=== PATIENT | male | born 1980 | race Caucasian/White ===

== ENCOUNTER 2016-12-01 07:06 | Emergency (ER) ==
--- NOTE | 2016-12-01 07:37 | PROVIDER DOCUMENTATION ---
HPI-General Adult - General Chief Complaint: Cold Symptoms Stated Complaint: BODYACHES/CHEST CON/COUGH Time Seen by Provider: 12/01/16 07:27 Source: patient Allergies/Adverse Reactions: Patient Allergies Allergy/AdvReac Type Severity Reaction Status Date / Time fluoxetine HCl * Allergy Unknown Verified 12/01/16 07:27 [facility] Home Medications: Home Medication List Medication Instructions Recorded Confirmed Last Taken Type Azithromycin [Zithromax Z-Gustavo] 250 mg PO DIRECTED #1 pkg 12/01/16 Unknown Rx Chlordiazepoxide [Librium] 25 mg PO DAILY 12/01/16 12/01/16 Unknown History Cyclobenzaprine [Flexeril] 10 mg PO DAILY 12/01/16 12/01/16 Unknown History Guaifenesin/Codeine Phosphate 10 ml PO Q4HR PRN #120 liquid 12/01/16 Unknown Rx [Cheratussin AC Syrup] Hydrocodone/Acetaminophen [Mcintire 1 each PO Q8H PRN PRN #12 tablet 12/01/16 Unknown Rx 5-325 Tablet] Propranolol HCl [Propranolol HCl 120 mg PO DAILY 12/01/16 12/01/16 Unknown History ER] - History of Present Illness -Gen Adult Nature of Presenting Problems: Cough cold and congestion for several days. Denies Temp. upper back hurts when he takes a deep breath. Location of Pain/Injury: reports: chest, back Pain Radiation: reports: no radiation Quality of Pain: reports: aching, dull Severity: reports: moderate Onset/Duration: reports: 1 week ago Timing: reports: still present Context/Activities at Onset: reports: moderate activity Modifying Factors: improves with: nothing Associated Symptoms: reports: back/neck pain, chest pain (pleuritic in nature), fatigue, shortness of breath, pain with inspiration. denies: diarrhea, fever/ chills, sinus congestion/drainage, nausea, vomiting Similar Symptoms Previously?: Yes Recently seen or treated by another doctor?: No Review of Systems - Adult - REVIEW OF SYSTEMS - ADULT Constitutional: reports: no symptoms reported Eyes: reports: no symptoms reported Ears, Nose, Mouth & Throat: reports: no symptoms reported Cardiovascular: reports: no symptoms reported Respiratory: reports: cough, shortness of breath, wheezing Gastrointestinal: reports: no symptoms reported Genitourinary: reports: no symptoms reported Musculoskeletal: reports: no symptoms reported Integumentary: reports: no symptoms reported Neurological: reports: no symptoms reported Psychiatric: reports: no symptoms reported Endocrine: reports: no symptoms reported Hematologic/Lymphatic: reports: no symptoms reported Allergic/Immunologic: reports: no symptoms reported All Other Systems: Reviewed and Negative Past History - Adult - PAST MEDICAL HISTORY-ADULT Review of Records: reports: Nursing Assessment Review Psychiatric: reports: anxiety - SOCIAL HISTORY Smoking: cigarettes Physical Exam-General - CONSTITUTIONAL General Appearance: alert, mild distress - HEAD, EARS, NOSE, MOUTH & THROAT HENMT: normocephalic/atraumatic, TMs normal, pharynx normal - NECK Neck: supple - RESPIRATORY Respiratory: chest non-tender, no respiratory distress, rhonchi, wheezing - CARDIOVASCULAR Cardiovascular: regular rate, rhythm - GASTROINTESTINAL (ABDOMEN) Abdominal Exam: non tender, soft - MUSCULOSKELETAL Back Exam: no CVA tenderness Extremity: no pedal edema - SKIN Integumentary: normal color, normal turgor - NEUROLOGIC Neurologic: grossly normal - PSYCHIATRIC Psych/Mental Status: oriented x 3 Progress - PLAN OF CARE/RESULTS Progress/Plan/Lab Results: chest xray ok by me. Departure - Departure Time of Disposition Order: 08:45 DIAGNOSIS: Acute bronchitis Disposition: HOME 01 Certified Medical Emergency: Emergent Condition: Good Prescriptions: Guaifenesin/Codeine Phosphate [Cheratussin AC Syrup] 10 ml PO Q4HR PRN #120 liquid PRN Reason: Cough Hydrocodone/Acetaminophen [Mcintire 5-325 Tablet] 1 each PO Q8H PRN PRN #12 tablet PRN Reason: Pain Azithromycin [Zithromax Z-Gustavo] 250 mg PO DIRECTED #1 pkg Referrals: None,PCP [Primary Care Provider] -
[2016-12-01] MEDS ORDERED: ROCEPHIN IM ONE (08:43)
[2016-12-01] MEDS ORDERED: XYLOCAINE-MPF 1% INJ ONE (08:43)
[2016-12-01] MEDS ORDERED: TORADOL IM ONE (08:44)
[2016-12-01] MEDS ORDERED: DECADRON IM ONE (08:44)
[2016-12-01 09:08] VITALS: BP 136/85
--- NOTE | 2016-12-01 11:04 | Diag Imaging Result Document ---
PROCEDURE NAME: CHEST-2 VIEWS - 12/01/2016 CHEST 2 VIEWS: No comparison exam. FINDINGS: Heart size is normal. There are possibly mild COPD changes. There is no consolidation, pleural effusion, or pneumothorax identified. IMPRESSION: Possible mild COPD changes. No other evidence of acute disease.
== END 2016-12-01 09:29 | disposition home or self-care (01) ==
LOC: P.ED 07:06
DX: J20.9 Acute bronchitis, unspecified (principal); R05 Cough; R06.2 Wheezing; R07.9 Chest pain, unspecified; M54.9 Dorsalgia, unspecified; R53.83 Other fatigue; R06.02 Shortness of breath; R09.89 Other specified symptoms and signs involving the circulatory and respiratory systems; F17.210 Nicotine dependence, cigarettes, uncomplicated; F41.9 Anxiety disorder, unspecified; Z79.899 Other long term (current) drug therapy
CPT/HCPCS: 71020; 96372; J0696; J1100; J1885